=== PATIENT | female | born 1960 | race Caucasian/White ===

== ENCOUNTER 2022-05-07 00:13 | Emergency (ER) | payer BC, OTHER ==
[~2022-05-07] VITALS: Ht 152.4 cm; Wt 73.5 kg
[2022-05-07] MEDS ORDERED: ONDANSETRON HCL 4 MG/2 ML VIAL IV ONE (00:45)
[2022-05-07] MEDS ORDERED: ONDANSETRON ODT 4 MG TAB PO ONE (00:45)
[2022-05-07] MEDS ORDERED: HYDROmorphone HCL 2 MG/ML VL/or syr IV ONE (00:45)
[2022-05-07] MEDS ORDERED: SODIUM CHLORIDE 0.9% 500 ML IV ONE (00:45)
[2022-05-07] MEDS ORDERED: OXYCODONE W/ ACETAMINOPHEN 5/325MG TABLET PO ONE ×2 (00:45→04:15)
[2022-05-07 01:25] LABS: Eosinophils # (auto) 0 10 ^3/uL (0-0.8); Monocytes # (auto) 0.5 10 ^3/uL (0-1.3)
[2022-05-07 01:27] LABS: Basophils # (auto) 0 10 ^3/uL (0-0.2); Basophils % (auto) 0.7 % (0.0-2.0); Eosinophils % (auto) 0.5 % (0.0-7.0); Hematocrit 43.3 % (36.0-46.0); Hemoglobin 14.9 g/dL (12.2-16.2); Lymphocytes # (auto) 0.6 10 ^3/uL (0.4-5.4); Lymphocytes % (auto) 13.5 % (10.0-50.0); Mean Corpuscular Hemoglobin 34.4 pg (28.0-32.0); Mean Corpuscular Hgb Conc. 34.5 g/dL (32.0-36.0); Mean Corpuscular Volume 99.5 fL (80.0-100.0); Monocytes % (auto) 10.8 % (0.0-12.0); Neutrophils # (auto) 3.5 10 ^3/uL (1.6-8.6); Neutrophils % (auto) 74.5 % (37.0-80.0); Nucleated Red Blood Cells % 0.2 %; Red Blood Cells 4.35 10^6/uL (4.0-5.20); Red Cell Distribution Width 13.8 % (11.8-14.3); White Blood Cell 4.7 10^3/uL (4.4-10.8)
[2022-05-07 01:48] LABS: Albumin 4.2 g/dL (3.4-5.0); Calcium 9.1 mg/dL (8.5-10.1); Potassium 3.9 mmol/L (3.5-5.1)
[2022-05-07 01:50] LABS: Bilirubin, Total 0.4 mg/dL (0.2-1.0)
[2022-05-07 04:00] VITALS: BP 148/72
[2022-05-07] MEDS ORDERED: PERCOT PO (04:22)
[2022-05-07] MEDS ORDERED: SENN1TAB14 PO (04:22)
[2022-05-07] MEDS ORDERED: ONDA-144 PO (04:22)
== END 2022-05-07 04:34 | disposition home or self-care (01) ==
LOC: ER 00:13
DX: R51.9 Headache, unspecified (principal); R11.2 Nausea with vomiting, unspecified
CPT/HCPCS: 36415; 70450; 71045; 80053; 84484; 85025; 93005; 96361; 96374; 96375; 99285; J1170; J2405; J7040